=== PATIENT | male | born 1995 | race Caucasian/White ===

== ENCOUNTER 2020-08-23 16:57 | Emergency (ER) | payer OTHER ==
[~2020-08-23] VITALS: Ht 157.5 cm; Wt 54.0 kg
[2020-08-23] MEDS ORDERED: CEPHALEXIN500 MG PO (19:13)
[2020-08-23 20:38] VITALS: BP 106/77
== END 2020-08-23 20:40 | disposition home or self-care (01) ==
LOC: M.ERS 16:57
DX: S51.012A Laceration without foreign body of left elbow, initial encounter (principal); X58.XXXA Exposure to other specified factors, initial encounter; Y93.89 Activity, other specified; Y92.89 Other specified places as the place of occurrence of the external cause; Y99.8 Other external cause status